=== PATIENT | male | born 1955 | race Caucasian/White ===

== ENCOUNTER 2022-03-13 07:27 | Outpatient (CLI) | payer BC, SELFPAY ==
--- NOTE | 2022-03-13 08:00 | CRLHL7_ITS ---
For Patients: As a result of the Century Cures Act, medical imaging exams and procedure reports are released immediately into your electronic medical record. You may view this report before your referring provider. If you have questions, please contact your health care provider. Indication: ADRENAL NODULES SEEN ON HEART SCAN Technique: Limited noncontrast CT abdomen Please note that all CT scans at this facility use dose modulation, iterative reconstruction, and/or weight-based dosing when appropriate to reduce radiation dose to as low as reasonably achievable. Findings: 1.1 cm left adrenal nodule with average Hounsfield units of 11. Normal right adrenal gland. Normal kidneys. Dense vascular calcifications. Spleen is normal in size. Calcified splenic granuloma noted. Upper limits normal gastrohepatic ligament lymph node. Calcified granuloma in the liver. Gallbladder unremarkable. No hiatal hernia. Postop changes of aortic valve repair. Calcified granulomas in the left lower lobe. Degenerative changes. No bowel obstruction. Impression: Benign 1.1 cm left adrenal adenoma. Please note that all CT scans at this facility use dose modulation, iterative reconstruction, and/or weight-based dosing when appropriate to reduce radiation dose to as low as reasonably achievable. Dictated by Yovany Segal MD @ 03/13/2022 9:06:38 AM (Electronically Signed)
== END 2022-03-13 07:28 | disposition home or self-care (01) ==
PROVIDERS: PCP Physician Assistant Medical; Visit Provider Physician Assistant Medical
DX: E27.9 Disorder of adrenal gland, unspecified (principal)
CPT/HCPCS: 74150

== ENCOUNTER 2023-03-19 08:59 | Outpatient (CLI) | payer MEDICARE, SELFPAY | END 2023-03-19 09:00 | disposition home or self-care (01) | LOC: LKVREF 09:00 | PROVIDERS: PCP Physician Assistant Medical; Visit Provider Physician Assistant Medical | DX: Z00.00 Encounter for general adult medical examination without abnormal findings (principal); E66.9 Obesity, unspecified; I10 Essential (primary) hypertension; E78.2 Mixed hyperlipidemia; M10.9 Gout, unspecified; G47.33 Obstructive sleep apnea (adult) (pediatric); Z12.5 Encounter for screening for malignant neoplasm of prostate; E11.42 Type 2 diabetes mellitus with diabetic polyneuropathy; I35.0 Nonrheumatic aortic (valve) stenosis; E27.8 Other specified disorders of adrenal gland | CPT/HCPCS: 80053; 80061; 82043; 82570; 82607; 84153; 84443 ==

== ENCOUNTER 2023-03-26 08:40 | Outpatient (CLI) | payer MEDICARE, SELFPAY ==
--- NOTE | 2023-03-26 09:45 | CRLHL7_ITS ---
For Patients: As a result of the Cures Act, medical imaging exams and procedure reports are released immediately into your electronic medical record. You may view this report before your referring provider. If you have questions, please contact your health care provider. Examination: US abdominal aorta Indication: Abdominal aortic aneurysm screening. Technique: Gómez scale and color Doppler images of the aorta and common iliac arteries are obtained. Comparison: None Findings: Proximal aorta: 2.4 x 2.4 cm Mid aorta: 1.7 x 1.9 cm Distal aorta: 1.8 x 1.8 cm Right common iliac artery: 1.1 x 1.1 cm Left common iliac artery: 1.2 x 1.2 cm Impression: No abdominal aortic aneurysm. Dictated by Yovany Segal MD @ 03/26/2023 9:37:36 AM (Electronically Signed)
== END 2023-03-26 08:41 | disposition home or self-care (01) ==
LOC: US 08:41
PROVIDERS: PCP Physician Assistant Medical; Visit Provider Physician Assistant Medical
DX: Z13.6 Encounter for screening for cardiovascular disorders (principal)
CPT/HCPCS: 76706

== ENCOUNTER 2023-04-09 08:35 | Outpatient (CLI) | payer MEDICARE, SELFPAY ==
--- NOTE | 2023-04-09 10:19 | W.ANESCHARGE ---
Anesthesia Charges Start Date/Time Anesthesia Start Date: 04/09/23 Anesthesia Start Time: 09:47 Stop Date/Time Anesthesia Stop Date: 04/09/23 Anesthesia Stop Time: 10:17
--- NOTE | 2023-04-09 10:54 | W.ANESCHARGE ---
Anesthesia Charges Start Date/Time Anesthesia Start Date: 04/09/23 Anesthesia Start Time: 09:47 Stop Date/Time Anesthesia Stop Date: 04/09/23 Anesthesia Stop Time: 10:17
== END 2023-04-09 08:36 | disposition home or self-care (01) ==
LOC: OP CLINIC 08:35
PROVIDERS: PCP Physician Assistant Medical; Visit Provider Surgery
DX: Z12.11 Encounter for screening for malignant neoplasm of colon (principal); K63.5 Polyp of colon; K57.30 Diverticulosis of large intestine without perforation or abscess without bleeding; Z86.010 Personal history of colon polyps
CPT/HCPCS: 00811; 45385; 88305; J2704

== ENCOUNTER 2023-06-17 08:39 | Outpatient (CLI) | payer MEDICARE, SELFPAY | END 2023-06-17 08:40 | disposition home or self-care (01) | LOC: LKVREF 08:40 | PROVIDERS: PCP Physician Assistant Medical; Visit Provider Physician Assistant Medical | DX: R10.9 Unspecified abdominal pain (principal); E11.9 Type 2 diabetes mellitus without complications; R50.9 Fever, unspecified | CPT/HCPCS: 80076 ==

== ENCOUNTER 2024-05-18 09:19 | Outpatient (CLI) | payer MEDICARE, SELFPAY | END 2024-05-18 09:20 | disposition home or self-care (01) | PROVIDERS: PCP Physician Assistant Medical; Visit Provider Physician Assistant Medical | DX: Z00.00 Encounter for general adult medical examination without abnormal findings (principal); E11.9 Type 2 diabetes mellitus without complications; I10 Essential (primary) hypertension; M10.9 Gout, unspecified; E66.9 Obesity, unspecified; E27.8 Other specified disorders of adrenal gland; Z12.5 Encounter for screening for malignant neoplasm of prostate; Z13.6 Encounter for screening for cardiovascular disorders; Z13.0 Encounter for screening for diseases of the blood and blood-forming organs and certain disorders involving the immune mechanism | CPT/HCPCS: 80053; 80061; 82043; 82570; 82607; 84550; G0103 ==

== ENCOUNTER 2025-05-04 16:50 | Outpatient (CLI) | payer MEDICARE, SELFPAY | END 2025-05-04 16:51 | disposition home or self-care (01) | PROVIDERS: PCP Physician Assistant Medical; Visit Provider Family Medicine | DX: M10.9 Gout, unspecified (principal); L08.9 Local infection of the skin and subcutaneous tissue, unspecified | CPT/HCPCS: 84550; 86140 ==

== ENCOUNTER 2025-05-08 09:49 | Outpatient (CLI) | payer MEDICARE, SELFPAY | END 2025-05-08 09:50 | disposition home or self-care (01) | PROVIDERS: PCP Physician Assistant Medical; Visit Provider Physician Assistant Medical | DX: Z12.5 Encounter for screening for malignant neoplasm of prostate (principal); E11.610 Type 2 diabetes mellitus with diabetic neuropathic arthropathy | CPT/HCPCS: 80053; 80061; 82043; 82570; 82607; 86141; G0103 ==

== ENCOUNTER 2025-05-10 12:11 | Outpatient (CLI) | payer MEDICARE, SELFPAY | END 2025-05-10 12:12 | disposition home or self-care (01) | LOC: WOUND 12:11 | PROVIDERS: PCP Physician Assistant Medical; Visit Provider Surgery | DX: E11.610 Type 2 diabetes mellitus with diabetic neuropathic arthropathy (principal); L97.529 Non-pressure chronic ulcer of other part of left foot with unspecified severity; L84 Corns and callosities; E11.40 Type 2 diabetes mellitus with diabetic neuropathy, unspecified; Z79.84 Long term (current) use of oral hypoglycemic drugs | CPT/HCPCS: 11055; G0463 ==

== ENCOUNTER 2025-05-10 14:33 | Outpatient (CLI) | payer MEDICARE, SELFPAY ==
--- NOTE | 2025-05-10 15:00 | CRLHL7_ITS ---
For Patients: As a result of the Century Cures Act, medical imaging exams and procedure reports are released immediately into your electronic medical record. You may view this report before your referring provider. If you have questions, please contact your health care provider. INDICATION: Left foot wound. TECHNIQUE: Noncontrast CT of the left foot. COMPARISON: Radiographs from 05/08/2025. FINDINGS: Patient is status post plate and screw fusion of the 1st and 2nd TMT articulations, between the 1st and 2nd metatarsal bases and of the intercuneiform articulations. The proximal screw associated with the 1st TMT fusion plate is fractured. The 2nd screw associated with the 2nd TMT joint hardware appears fractured. The proximal screw associated with that hardware extends within the navicular-cuneiform joint space. There is lucency associated with the screw that extends from the 1st metatarsal base to the 2nd metatarsal base at the level of the 2nd metatarsal base indicating loosening. There is some limited osseous fusion across the 1st TMT articulation but not across greater than 50 percent of the cross-sectional area of that articulation. Prior fragmentation of the 2nd cuneiform bone. No broad mature fusion across the 2nd TMT articulation. 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 Degenerative changes of talonavicular and calcaneocuboid articulations. Os trigonum. First MTP joint degenerative changes. Diminutive medial sesamoid bone. Atrophy of foot musculature. Areas of subcutaneous tissue infiltration which may relate to edema versus cellulitis. No definite fluid collection. No tracking soft tissue gas. IMPRESSION: 1. Status post plate and screw fusion of the 1st and 2nd TMT articulations, between the 1st and 2nd metatarsal bases and of the intercuneiform articulations. Evidence of screw fracture and screw loosening as detailed above. 2. Limited osseous fusion across the 1st TMT articulation but not across greater than 50 percent of the cross-sectional area of that articulation. Prior fragmentation of the 2nd cuneiform bone. No broad mature fusion across the 2nd TMT articulation. 3. 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 4. Areas of subcutaneous tissue infiltration which may relate to edema versus cellulitis. No definite fluid collection. No tracking soft tissue gas. Please note that all CT scans at this facility use dose modulation, iterative reconstruction, and/or weight-based dosing when appropriate to reduce radiation dose to as low as reasonably achievable. Dictated by Yunior Cherry MD @ 05/11/2025 8:05:24 AM (Electronically Signed)
== END 2025-05-10 14:34 | disposition home or self-care (01) ==
PROVIDERS: PCP Physician Assistant Medical; Visit Provider Physician Assistant Medical
DX: M79.672 Pain in left foot (principal); S91.302A Unspecified open wound, left foot, initial encounter; M19.072 Primary osteoarthritis, left ankle and foot; E11.610 Type 2 diabetes mellitus with diabetic neuropathic arthropathy; L97.529 Non-pressure chronic ulcer of other part of left foot with unspecified severity; L84 Corns and callosities; E11.40 Type 2 diabetes mellitus with diabetic neuropathy, unspecified; Z79.84 Long term (current) use of oral hypoglycemic drugs
CPT/HCPCS: 73700

== ENCOUNTER 2025-05-17 13:03 | Outpatient (CLI) | payer MEDICARE, SELFPAY | END 2025-05-17 13:04 | disposition home or self-care (01) | LOC: WOUND 13:03 | PROVIDERS: PCP Physician Assistant Medical; Visit Provider Surgery | DX: E11.621 Type 2 diabetes mellitus with foot ulcer (principal); L97.521 Non-pressure chronic ulcer of other part of left foot limited to breakdown of skin; E11.40 Type 2 diabetes mellitus with diabetic neuropathy, unspecified; Z79.84 Long term (current) use of oral hypoglycemic drugs | CPT/HCPCS: 97597 ==

== ENCOUNTER 2025-05-24 14:17 | Outpatient (CLI) | payer MEDICARE, SELFPAY | END 2025-05-24 14:18 | disposition home or self-care (01) | LOC: WOUND 14:17 | PROVIDERS: PCP Physician Assistant Medical; Visit Provider Surgery | DX: E11.610 Type 2 diabetes mellitus with diabetic neuropathic arthropathy (principal); G62.9 Polyneuropathy, unspecified; Z86.31 Personal history of diabetic foot ulcer; I51.9 Heart disease, unspecified; Z79.84 Long term (current) use of oral hypoglycemic drugs | CPT/HCPCS: G0463; J0690 ==